=== PATIENT | male | born 1965 | race African-American/Black ===

== ENCOUNTER 2022-10-24 15:30 | Observation (INO) ==
--- NOTE | 2022-10-24 15:51 | EKG ---
Test Reason : OVERDOSE Blood Pressure : */* mmHG Vent. Rate : 71 BPM Atrial Rate : 71 BPM P-R Int : 158 ms QRS Dur : 90 ms QT Int : 438 ms P-R-T Axes : 48 7 -10 degrees QTc Int : 475 ms Sinus rhythm with occasional premature ventricular complexes Possible Left atrial enlargement Left ventricular hypertrophy ( R in aVL , Sokolow-Ariza , [place] product , Romhilt-Naranjo ) T wave abnormality, consider inferior ischemia Abnormal ECG When compared with ECG of 14-OCT-2022 12:30, T wave inversion more evident in Inferior leads Confirmed by Sean Lara ([id number]) on 10/25/2022 7:29:08 AM Referred By: Confirmed By: Sean Lara
--- NOTE | 2022-10-24 15:55 | DR.DING ---
HPI Time Seen Time Seen by Provider: 10/24/22 15:53 PMH PMH Past Medical History: Anxiety, CVA, Hypertension and Seizures Past Surgical History: Yes Surgical History: Ortho Surgery Family History Family Medical History: Hypertension Social History Do you use any recreational Drugs:: No PE Vital signs Vitals: Vital Signs Pulse Rate 71 Pulse Rate 72 Pulse Rate 75 Pulse Rate 76 Pulse Rate 95 Pulse Rate 94 Pulse Rate 98 Pulse Rate 69 Respiratory Rate 14 Respiratory Rate 25 Respiratory Rate 27 Respiratory Rate 32 Respiratory Rate 17 Blood Pressure 173/94 Blood Pressure 168/81 Blood Pressure 184/84 Blood Pressure 142/83 O2 Sat by Pulse Oximetry 100 O2 Sat by Pulse Oximetry 100 O2 Sat by Pulse Oximetry 100 O2 Sat by Pulse Oximetry 100 O2 Sat by Pulse Oximetry 100 O2 Sat by Pulse Oximetry 100 O2 Sat by Pulse Oximetry 100 O2 Sat by Pulse Oximetry 100 ROR Labs Reviewed 10/24/22 16:00 10/24/22 16:00 Laboratory: WBC 7.8 X10^3/uL (3.6-10.0) 10/24/22 16:00 RBC 3.81 X10^6/uL (4.7-6.0) L 10/24/22 16:00 Hgb 12.8 g/dL (13.5-18.0) L 10/24/22 16:00 Hct 39.1 % (42.0-54.0) L 10/24/22 16:00 MCV 102.7 fL (80.0-100.0) H 10/24/22 16:00 MCH 33.7 pg (27.0-34.0) 10/24/22 16:00 MCHC 32.8 g/dL (33.0-35.0) L 10/24/22 16:00 RDW 12.3 % (11.6-16.5) 10/24/22 16:00 Plt Count 156 X10^3/uL (150.0-450.0) 10/24/22 16:00 MPV 9.2 fL (7.4-11.0) 10/24/22 16:00 Neut % (Auto) 73.8 % (42.0-75.0) 10/24/22 16:00 Lymph % (Auto) 15.7 % (21.0-51.0) L 10/24/22 16:00 [place] % (Auto) 8.8 % (0.0-13.0) 10/24/22 16:00 Eos % (Auto) 1.1 % (0.9-2.9) 10/24/22 16:00 Baso % (Auto) 0.6 % (0.2-1.0) 10/24/22 16:00 Neut # (Auto) 5.7 x10^3/uL (2.2-4.8) H 10/24/22 16:00 Lymph # (Auto) 1.2 X10^3/uL (1.3-2.9) L 10/24/22 16:00 [place] # (Auto) 0.7 x10^3/uL (0.3-0.8) 10/24/22 16:00 Eos # (Auto) 0.1 x10^3/uL (0.0-0.2) 10/24/22 16:00 Baso # (Auto) 0.0 X10^3/uL (0.0-0.1) 10/24/22 16:00 Absolute Nucleated RBC 0.0 /100WBC 10/24/22 16:00 Sodium 147 mmol/L (136-145) H 10/24/22 16:00 Corrected Sodium TNP 10/24/22 16:00 Potassium 4.5 mmol/L (3.5-5.1) 10/24/22 16:00 Chloride 111 mmol/L (98-107) H 10/24/22 16:00 Carbon Dioxide 29.6 mmol/L (21-32) 10/24/22 16:00 BUN 34 mg/dL (7-18) H 10/24/22 16:00 Creatinine 1.53 mg/dL (0.70-1.30) H 10/24/22 16:00 Est GFR (MDRD) Af Amer 60 (>60) 10/24/22 16:00 Est GFR (MDRD) Non-Af 50 (>60) L 10/24/22 16:00 Glucose 105 mg/dL (65-99) H 10/24/22 16:00 Calcium 8.2 mg/dL (8.5-10.1) L 10/24/22 16:00 Corrected Calcium TNP 10/24/22 16:00 Total Bilirubin 0.90 mg/dL (0.2-1.0) 10/24/22 16:00 AST 31 Units/L (15-37) 10/24/22 16:00 ALT 30 Units/L (12-78) 10/24/22 16:00 Alkaline Phosphatase 69 Units/L (46-116) 10/24/22 16:00 Total Protein 7.0 g/dL (6.4-8.2) 10/24/22 16:00 Albumin 3.5 g/dL (3.4-5.0) 10/24/22 16:00 Globulin 3.5 g/dL (2.5-4.5) 10/24/22 16:00 Albumin/Globulin Ratio 1.0 Ratio (1.1-2.1) L 10/24/22 16:00 Salicylates < 2.8 mg/dL (2.8-20) L 10/24/22 16:00 Acetaminophen 0.0 ug/mL (10-30) L 10/24/22 16:00 Ethyl Alcohol mg/dL < 3 mg/dL (0-19.9) 10/24/22 16:00 Opioid Opioid Risk Tool Age ([place] box if 16-45): No History of Preadolescent Sexual Abuse: No Total: 0 Total Score Risk Category: Low Risk Copyright: [place] BASS predicting aberrant behaviors Discharge Plan Discharge Plan Patient Disposition: 01 HOME, SELF-CARE Condition: Stable Prescriptions: No Action amlodipine 10 mg tablet 10 mg PO QHS clonazepam 1 mg tablet 1 mg PO QHS MDD 1 tablet 30 Days Qty: 30 0RF Rx Instructions: administer 30 minutes before bedtime tamsulosin 0.4 mg capsule 0.4 mg PO QHS Qty: 30 3RF carvedilol 25 mg Tablet 25 mg PO QHS Rx Instructions: must administer with a meal/food clonidine HCl 0.2 mg Tablet 0.2 mg PO BID PRN lisinopril 40 mg Tablet 40 mg PO QAM lisinopril 40 mg tablet 40 mg PO QDAY Qty: 30 0RF amiloride 5 mg tablet 10 mg PO QHS Qty: 30 0RF carvedilol 25 mg tablet 25 mg PO QHS Qty: 30 0RF Rx Instructions: must administer with a meal/food Health Concerns: Post Hospitalization: new medications and changes needed to prevent readmission or further decline. Pt educated and given instructions on all concerns. Plan of Treatment: Continue with present treatment and follow up plan. Pt is to keep follow up appointment as instructed and take medications as ordered. Orders to Discharge Patient Discharge Orders: Transfer (Routine); Ordered 10/24/22 Ordered By: LAURO DORANTES Follow ups/Referrals Follow ups/Referrals: [facility],None [Primary Care Provider] - 3 days Instructions Stand Alone Forms: Post Hospital Follow Up Care
[2022-10-24 16:22] LABS: BASOPHILS % (AUTO) 0.6 % (0.2-1.0); EOSINOPHILS # (AUTO) 0.1 x10^3/uL (0.0-0.2); EOSINOPHILS % (AUTO) 1.1 % (0.9-2.9); HEMATOCRIT 39.1 % (42.0-54.0); HEMOGLOBIN 12.8 g/dL (13.5-18.0); LYMPHOCYTES # (AUTO) 1.2 X10^3/uL (1.3-2.9); LYMPHOCYTES % (AUTO) 15.7 % (21.0-51.0); MEAN CORPUSCULAR HEMOGLOBIN 33.7 pg (27.0-34.0); MEAN CORPUSCULAR HGB CONC 32.8 g/dL (33.0-35.0); MEAN CORPUSCULAR VOLUME 102.7 fL (80.0-100.0); MEAN PLATELET VOLUME 9.2 fL (7.4-11.0); MONOCYTES # (AUTO) 0.7 x10^3/uL (0.3-0.8); MONOCYTES % (AUTO) 8.8 % (0.0-13.0); NEUTROPHILS # (AUTO) 5.7 x10^3/uL (2.2-4.8); NEUTROPHILS % (AUTO) 73.8 % (42.0-75.0); PLATELET COUNT 156 X10^3/uL (150.0-450.0); RED BLOOD COUNT 3.81 X10^6/uL (4.7-6.0); RED CELL DISTRIBUTION WIDTH 12.3 % (11.6-16.5); WHITE BLOOD COUNT 7.8 X10^3/uL (3.6-10.0)
[2022-10-24 16:26] LABS: ALANINE AMINOTRANSFERASE 30 Units/L (12-78); ALBUMIN 3.5 g/dL (3.4-5.0); ALKALINE PHOSPHATASE 69 Units/L (46-116); ASPARTATE AMINO TRANSFERASE 31 Units/L (15-37); BLOOD UREA NITROGEN 34 mg/dL (7-18); CALCIUM 8.2 mg/dL (8.5-10.1); CARBON DIOXIDE 29.6 mmol/L (21-32); CHLORIDE 111 mmol/L (98-107); CREATININE 1.53 mg/dL (0.70-1.30); GLUCOSE 105 mg/dL (65-99); POTASSIUM 4.5 mmol/L (3.5-5.1); SODIUM 147 mmol/L (136-145); eGFR NON BLACK RACES 50 (>60)
[2022-10-24 16:29] LABS: BLOOD ALCOHOL < 3 mg/dL (0-19.9)
[2022-10-24 16:37] LABS: SALICYLATE < 2.8 mg/dL (2.8-20)
[2022-10-24] MEDS ORDERED: NS 1,000 ML IV 1,000 ML ONE (16:40)
[2022-10-24] MEDS: NS 1,000 ML IV 1,000 ML IV SCH (16:44)
[2022-10-24] MEDS ORDERED: GEODON INJ IM ONE (20:02)
[2022-10-24] MEDS: GEODON INJ IM ONE (20:16)
[2022-10-24 22:39] VITALS: BMI 24.7
[2022-10-24] MEDS ORDERED: APRESOLINE INJ 20 MG VIAL IVP ONE (22:42)
[2022-10-24 23:10] LABS: BILIRUBIN,URINE NEGATIVE (NEGATIVE); BLOOD/HEMOGLOBIN,URINE NEGATIVE (NEGATIVE); GLUCOSE, URINE NEGATIVE (NEGATIVE); KETONES,URINE NEGATIVE (NEGATIVE); LEUKOCYTE ESTERASE ,URINE NEGATIVE (NEGATIVE); NITRITES,URINE NEGATIVE (NEGATIVE); PROTEIN,URINE NEGATIVE (NEGATIVE); UROBILINOGEN,URINE NORMAL (NORMAL)
[2022-10-24 23:27] LABS: APPEARANCE,URINE CLEAR (CLEAR); COLOR,URINE PALE YELLOW (YELLOW)
--- NOTE | 2022-10-24 23:30 | EKG ---
Test Reason : Hpertension Protocol Blood Pressure : */* mmHG Vent. Rate : 78 BPM Atrial Rate : 78 BPM P-R Int : 144 ms QRS Dur : 86 ms QT Int : 410 ms P-R-T Axes : 55 21 -4 degrees QTc Int : 467 ms Sinus rhythm with frequent premature ventricular complexes Possible Left atrial enlargement Left ventricular hypertrophy ( Sokolow-Ariza , [place] product , Romhilt-Naranjo ) Abnormal ECG When compared with ECG of 24-OCT-2022 15:49, (Unconfirmed) Nonspecific T wave abnormality no longer evident in Lateral leads Confirmed by Sean Lara ([id number]) on 10/25/2022 7:28:42 AM Referred By: Confirmed By: Sean Lara
[2022-10-25] MEDS: NS 1,000 ML IV 1,000 ML IV SCH (02:00)
[2022-10-25] MEDS ORDERED: GEODON INJ IM ONE ×2 (03:10→10:48)
[2022-10-25] MEDS: GEODON INJ IM ONE (03:56)
[2022-10-25 05:33] LABS: BASOPHILS # (AUTO) 0.1 X10^3/uL (0.0-0.1); BASOPHILS % (AUTO) 0.7 % (0.2-1.0); EOSINOPHILS # (AUTO) 0.1 x10^3/uL (0.0-0.2); EOSINOPHILS % (AUTO) 1.9 % (0.9-2.9); HEMATOCRIT 42.6 % (42.0-54.0); HEMOGLOBIN 14.3 g/dL (13.5-18.0); LYMPHOCYTES # (AUTO) 2.1 X10^3/uL (1.3-2.9); LYMPHOCYTES % (AUTO) 27.9 % (21.0-51.0); MEAN CORPUSCULAR HEMOGLOBIN 33.9 pg (27.0-34.0); MEAN CORPUSCULAR HGB CONC 33.6 g/dL (33.0-35.0); MEAN CORPUSCULAR VOLUME 100.9 fL (80.0-100.0); MEAN PLATELET VOLUME 8.8 fL (7.4-11.0); MONOCYTES # (AUTO) 0.6 x10^3/uL (0.3-0.8); MONOCYTES % (AUTO) 8.2 % (0.0-13.0); NEUTROPHILS # (AUTO) 4.7 x10^3/uL (2.2-4.8); NEUTROPHILS % (AUTO) 61.3 % (42.0-75.0); PLATELET COUNT 168 X10^3/uL (150.0-450.0); RED BLOOD COUNT 4.23 X10^6/uL (4.7-6.0); RED CELL DISTRIBUTION WIDTH 12.7 % (11.6-16.5); WHITE BLOOD COUNT 7.6 X10^3/uL (3.6-10.0)
[2022-10-25 05:44] LABS: ALANINE AMINOTRANSFERASE 30 Units/L (12-78); ALBUMIN 3.5 g/dL (3.4-5.0); ALKALINE PHOSPHATASE 75 Units/L (46-116); ASPARTATE AMINO TRANSFERASE 31 Units/L (15-37); BLOOD UREA NITROGEN 19 mg/dL (7-18); CALCIUM 8.2 mg/dL (8.5-10.1); CARBON DIOXIDE 24.6 mmol/L (21-32); CHLORIDE 111 mmol/L (98-107); CREATININE 0.91 mg/dL (0.70-1.30); GLUCOSE 83 mg/dL (65-99); MAGNESIUM 1.9 mg/dL (2.0-2.9); POTASSIUM 3.5 mmol/L (3.5-5.1); SODIUM 146 mmol/L (136-145); TOTAL PROTEIN 7.2 g/dL (6.4-8.2); eGFR NON BLACK RACES > 60 (>60)
[2022-10-25] MEDS ORDERED: CONSULT PHARMACY - POTASSIUM & MAGNESIUM XX SCH (07:00)
[2022-10-25] MEDS: NS + KCL 20 MEQ/L 1,000 ML with MAGNESIUM SULFATE 50% INJ VIAL 1 G IV SCH ×4 (08:00→16:33)
[2022-10-25] MEDS ORDERED: MAG-OX TAB PO SCH (09:00)
[2022-10-25] MEDS ORDERED: K-DUR TAB 20 MEQ PO SCH (09:00)
[2022-10-25] MEDS ORDERED: GEODON INJ IM PRN (10:47)
[2022-10-25] MEDS ORDERED: APRESOLINE INJ 20 MG VIAL IVP ONE ×2 (11:03→17:10)
[2022-10-25] MEDS: ZESTRIL TAB 40 MG PO SCH (11:23)
[2022-10-25] MEDS: NORMODYNE INJ 20 MG VIAL IV PRN (14:42)
[2022-10-25] MEDS: ATIVAN INJ 2 MG VIAL IVP PRN ×2 (14:42→22:14)
[2022-10-25] MEDS: COREG TAB 25 MG PO SCH (20:06)
[2022-10-25] MEDS: KLONOPIN TAB 1 MG PO SCH (20:06)
[2022-10-25] MEDS: FLOMAX PO SCH (20:06)
--- NOTE | 2022-10-25 20:46 | DR.H&P ---
H&P History & Physical for Day of: H&P Date: 10/25/22 Chief Complaint Chief Complaint: Altered mental status Overdose Allergies Allergies Allergy/AdvReac Type Severity Reaction Status Date / Time tramadol Allergy Verified 10/10/22 19:58 History of Present Illness History of Present Illness: Pt is a 57 year old male that is presenting after swallowing multiple klonopin pills per discussion with ED physician. Pt states that he was trying to harm himself. Patient has a history of recurrent ER visits for similar complaints. This time he was being arrested by law enforcement and took the pills in front of them. He was then brought to the ED for further assessment. Poison control was contacted and advised to monitor the patient until he is alert and oriented. Patient was admitted in the ICU for closer monitoring. Labs/imaging: Wbc 7.6, Hgb 14.3, Plt 168, Na 146, K 3.5, Creatinine 0.91, Glucose 83, UA negative, Toxicology screen negative. Plan: Admit to ICU for closer monitoring. When patient reached the ICU, he became very aggressive and was pulling all the lines. Security was called and patient had to be placed on restraints. He was given Geodon 10 mg IM. He was monitored throughout the night and did require an additional dose of Geodon. He refused to wear telemetry. This morning, his mental status improved to baseline, he is alert and oriented. He does have mental health issues including agitation and very combative. He stated that he wants to harm himself. Patient does have a 1013 signed. He has been very uncooperative with nursing staff. He had to be placed in 4 point restraints due to his combative behaviour. Patient is medically cleared to be transferred to psych facility. CM will notify crisis line to evaluate the patient for transfer. . Continue closely monitor and follow-up with patient. Past Medical History Past Medical History: Anxiety, CVA, Hypertension and Seizures Past Surgical History Surgical History: Ortho Surgery Family History Family Medical History: Hypertension Social History Does patient currently use any type of tobacco product: Yes Have you used tobacco products in the last 12 months: Yes Type of Tobacco Use: Cigarettes How many years tobacco product used: 1 Does any household member use tobacco: Yes Alcohol Use: Other Drug Use: Prescription Drugs Medications Home Medications: Home Medications Medication Instructions Recorded Confirmed Type lisinopril 40 mg tablet 40 mg PO QAM 10/10/22 10/25/22 History Labs 10/25/22 05:14 10/25/22 05:14 Labs: Laboratory WBC 7.6 X10^3/uL (3.6-10.0) 10/25/22 05:14 RBC 4.23 X10^6/uL (4.7-6.0) L 10/25/22 05:14 Hgb 14.3 g/dL (13.5-18.0) 10/25/22 05:14 Hct 42.6 % (42.0-54.0) 10/25/22 05:14 MCV 100.9 fL (80.0-100.0) H 10/25/22 05:14 MCH 33.9 pg (27.0-34.0) 10/25/22 05:14 MCHC 33.6 g/dL (33.0-35.0) 10/25/22 05:14 RDW 12.7 % (11.6-16.5) 10/25/22 05:14 Plt Count 168 X10^3/uL (150.0-450.0) 10/25/22 05:14 MPV 8.8 fL (7.4-11.0) 10/25/22 05:14 Neut % (Auto) 61.3 % (42.0-75.0) 10/25/22 05:14 Lymph % (Auto) 27.9 % (21.0-51.0) 10/25/22 05:14 [place] % (Auto) 8.2 % (0.0-13.0) 10/25/22 05:14 Eos % (Auto) 1.9 % (0.9-2.9) 10/25/22 05:14 Baso % (Auto) 0.7 % (0.2-1.0) 10/25/22 05:14 Neut # (Auto) 4.7 x10^3/uL (2.2-4.8) 10/25/22 05:14 Lymph # (Auto) 2.1 X10^3/uL (1.3-2.9) 10/25/22 05:14 [place] # (Auto) 0.6 x10^3/uL (0.3-0.8) 10/25/22 05:14 Eos # (Auto) 0.1 x10^3/uL (0.0-0.2) 10/25/22 05:14 Baso # (Auto) 0.1 X10^3/uL (0.0-0.1) 10/25/22 05:14 Absolute Nucleated RBC 0.1 /100WBC 10/25/22 05:14 Sodium 146 mmol/L (136-145) H 10/25/22 05:14 Corrected Sodium TNP 10/25/22 05:14 Potassium 3.5 mmol/L (3.5-5.1) 10/25/22 05:14 Chloride 111 mmol/L (98-107) H 10/25/22 05:14 Carbon Dioxide 24.6 mmol/L (21-32) 10/25/22 05:14 BUN 19 mg/dL (7-18) H 10/25/22 05:14 Creatinine 0.91 mg/dL (0.70-1.30) 10/25/22 05:14 Est GFR (MDRD) Af Amer > 60 (>60) 10/25/22 05:14 Est GFR (MDRD) Non-Af > 60 (>60) 10/25/22 05:14 Glucose 83 mg/dL (65-99) 10/25/22 05:14 Calcium 8.2 mg/dL (8.5-10.1) L 10/25/22 05:14 Corrected Calcium TNP 10/25/22 05:14 Magnesium 1.9 mg/dL (2.0-2.9) L 10/25/22 05:14 Total Bilirubin 1.10 mg/dL (0.2-1.0) H 10/25/22 05:14 AST 31 Units/L (15-37) 10/25/22 05:14 ALT 30 Units/L (12-78) 10/25/22 05:14 Alkaline Phosphatase 75 Units/L (46-116) 10/25/22 05:14 Total Protein 7.2 g/dL (6.4-8.2) 10/25/22 05:14 Albumin 3.5 g/dL (3.4-5.0) 10/25/22 05:14 Globulin 3.7 g/dL (2.5-4.5) 10/25/22 05:14 Albumin/Globulin Ratio 0.9 Ratio (1.1-2.1) L 10/25/22 05:14 Specimen Type Clean catch urine 10/24/22 22:56 Urine Color Pale yellow (YELLOW) 10/24/22 22:56 Urine Appearance Clear (CLEAR) 10/24/22 22:56 Urine pH 6.0 (5.0 - 8.0) 10/24/22 22:56 Ur Specific [place] 1.015 (1.000-1.030) 10/24/22 22:56 Urine Protein Negative (NEGATIVE) 10/24/22 22:56 Urine Glucose (UA) Negative (NEGATIVE) 10/24/22 22:56 Urine Ketones Negative (NEGATIVE) 10/24/22 22:56 Urine Blood Negative (NEGATIVE) 10/24/22 22:56 Urine Nitrite Negative (NEGATIVE) 10/24/22 22:56 Urine Bilirubin Negative (NEGATIVE) 10/24/22 22:56 Urine Urobilinogen Normal (NORMAL) 10/24/22 22:56 Ur Leukocyte Esterase Negative (NEGATIVE) 10/24/22 22:56 Salicylates < 2.8 mg/dL (2.8-20) L 10/24/22 22:10 Urine Opiates Screen Negative (NEG=<300) 10/24/22 23:00 Urine Methadone Screen Negative (NEG=<300) 10/24/22 23:00 Acetaminophen 0.0 ug/mL (10-30) L 10/24/22 22:10 Ur Barbiturates Screen Negative (NEG=<200) 10/24/22 23:00 Ur Phencyclidine Scrn Negative (NEG=<25) 10/24/22 23:00 Ur Amphetamines Screen Negative (NEG=<1000) 10/24/22 23:00 U Benzodiazepines Scrn Negative (NEG=<200) 10/24/22 23:00 Urine Cocaine Screen Negative (NEG=<300) 10/24/22 23:00 U Marijuana (THC) Screen Negative (NEG=<50) 10/24/22 23:00 Ethyl Alcohol mg/dL < 3 mg/dL (0-19.9) 10/24/22 16:00 Review of Systems Constitutional: No Symptoms Reported Eyes: No Symptoms Reported ENT: No Symptoms Reported Respiratory: No Symptoms Reported Cardiovascular: No Symptoms Reported Gastrointestinal: No Symptoms Reported Genitourinary: No Symptoms Reported Musculoskeletal: No Symptoms Reported Skin: No Symptoms Reported Neurological: No Symptoms Reported Physical Exam Vital Signs: Vital Signs Temperature 98.0 F Temperature 97.6 F Temperature 97.7 F Pulse Rate 77 Pulse Rate 76 Pulse Rate 67 Pulse Rate 66 Pulse Rate 69 Pulse Rate 67 Pulse Rate 59 Pulse Rate 68 Respiratory Rate 30 Respiratory Rate 24 Respiratory Rate 24 Respiratory Rate 15 Respiratory Rate 14 Respiratory Rate 15 Respiratory Rate 16 Respiratory Rate 18 Blood Pressure 196/91 Blood Pressure 166/89 Blood Pressure 155/89 Blood Pressure 140/88 Blood Pressure 99/64 Blood Pressure 138/67 Blood Pressure 177/99 O2 Sat by Pulse Oximetry 100 O2 Sat by Pulse Oximetry 100 O2 Sat by Pulse Oximetry 100 O2 Sat by Pulse Oximetry 100 O2 Sat by Pulse Oximetry 100 O2 Sat by Pulse Oximetry 100 O2 Sat by Pulse Oximetry 100 O2 Sat by Pulse Oximetry 100 Oriented: Normal Eyes: Normal Ear: Normal Nose: Normal Throat: Normal Respiratory: Clear Throughout Cardiovascular: Normal : Normal Auscultation: Bowel Sounds: Normal Palpation: Normal Tenderness: Normal Skin: Normal Musculoskeletal: Normal Psychiatric: Agitation Mood Description: Hostile Affect: Depressed Speech Pattern: Clear and Appropriate Assessment/Plan (1) Depression: Status: Acute (2) Suicidal ideation: Status: Acute (3) Polysubstance abuse: Status: Acute Review H&P Reviewed: Yes Patient was examined?: Yes
[2022-10-26] MEDS: NS + KCL 20 MEQ/L 1,000 ML with MAGNESIUM SULFATE 50% INJ VIAL 1 G IV SCH ×6 (01:40→16:02)
[2022-10-26] MEDS ORDERED: MORPHINE SULFATE INJ 2 MG INJ IVP ONE (02:30)
[2022-10-26] MEDS ORDERED: MORPHINE SULFATE INJ 2 MG INJ ONE (02:35)
[2022-10-26 05:21] LABS: ALANINE AMINOTRANSFERASE 23 Units/L (12-78); ALBUMIN 3.1 g/dL (3.4-5.0); ALKALINE PHOSPHATASE 70 Units/L (46-116); ASPARTATE AMINO TRANSFERASE 27 Units/L (15-37); BLOOD UREA NITROGEN 12 mg/dL (7-18); CALCIUM 7.6 mg/dL (8.5-10.1); CARBON DIOXIDE 26.9 mmol/L (21-32); CHLORIDE 110 mmol/L (98-107); COR CA(FOR HYPOALB) 8.3 mg/dL (8.5-10.1); COR NA(FOR HYPERGLY) 145 mmol/L (136-145); CREATININE 1.03 mg/dL (0.70-1.30); GLUCOSE 154 mg/dL (65-99); MAGNESIUM 2.3 mg/dL (2.0-2.9); SODIUM 144 mmol/L (136-145); TOTAL PROTEIN 6.5 g/dL (6.4-8.2); eGFR NON BLACK RACES > 60 (>60)
[2022-10-26 05:26] LABS: BASOPHILS # (AUTO) 0.1 X10^3/uL (0.0-0.1); BASOPHILS % (AUTO) 0.6 % (0.2-1.0); EOSINOPHILS # (AUTO) 0.1 x10^3/uL (0.0-0.2); EOSINOPHILS % (AUTO) 1.4 % (0.9-2.9); HEMATOCRIT 39.6 % (42.0-54.0); HEMOGLOBIN 13.3 g/dL (13.5-18.0); LYMPHOCYTES # (AUTO) 1.9 X10^3/uL (1.3-2.9); LYMPHOCYTES % (AUTO) 22.2 % (21.0-51.0); MEAN CORPUSCULAR HEMOGLOBIN 33.9 pg (27.0-34.0); MEAN CORPUSCULAR HGB CONC 33.6 g/dL (33.0-35.0); MEAN PLATELET VOLUME 10.2 fL (7.4-11.0); MONOCYTES # (AUTO) 0.5 x10^3/uL (0.3-0.8); MONOCYTES % (AUTO) 6.4 % (0.0-13.0); NEUTROPHILS # (AUTO) 5.8 x10^3/uL (2.2-4.8); NEUTROPHILS % (AUTO) 69.4 % (42.0-75.0); PLATELET COUNT 138 X10^3/uL (150.0-450.0); RED BLOOD COUNT 3.92 X10^6/uL (4.7-6.0); RED CELL DISTRIBUTION WIDTH 12.6 % (11.6-16.5)
[2022-10-26 05:34] LABS: PLATELET MORPHOLOGY COMMENT NORMAL (NORMAL); WHITE BLOOD COUNT 8.4 X10^3/uL (3.6-10.0)
[2022-10-26] MEDS: ZESTRIL TAB 40 MG PO SCH (09:05)
--- NOTE | 2022-10-26 10:56 | PCM.PROG ---
Progress Note Progress Note for Day of Date of Exam: 10/26/22 Subjective Subjective: The patient is alert and awake this morning. He is currently eating breakfast and reports no new problems since yesterday. He is calm and not angry today like he had been over the last few days. We are still currently trying to find a place to take him because of his delivery drug overdose. However, this morning, he told me that he deliberately took the medication to get people's attention; however, he has a history of deliberate drug overdoses in the past, and he was telling the covering physician and nurses that he wanted to and kill himself over the last few days. Past Medical Family Social History Allergies: Allergies tramadol Allergy (Verified 10/10/22 19:58) Review of Systems ROS: No change since H&P Vital Signs and I&O's Vital Signs: Vital Signs Temperature 97.5 F Temperature 98.1 F Pulse Rate 68 Pulse Rate 68 Pulse Rate 69 Pulse Rate 75 Pulse Rate 70 Pulse Rate 71 Pulse Rate 69 Pulse Rate 68 Pulse Rate 69 Pulse Rate 68 Pulse Rate 63 Pulse Rate 70 Pulse Rate 82 Pulse Rate 78 Respiratory Rate 25 Respiratory Rate 22 Respiratory Rate 19 Respiratory Rate 26 Respiratory Rate 18 Respiratory Rate 19 Respiratory Rate 18 Respiratory Rate 13 Respiratory Rate 19 Respiratory Rate 18 Respiratory Rate 34 Respiratory Rate 20 Respiratory Rate 26 Blood Pressure 141/77 Blood Pressure 141/77 Blood Pressure 91/71 Blood Pressure 91/71 Blood Pressure 91/71 Blood Pressure 125/72 Blood Pressure 124/71 Blood Pressure 144/80 Blood Pressure 128/70 Blood Pressure 112/55 O2 Sat by Pulse Oximetry 100 O2 Sat by Pulse Oximetry 99 O2 Sat by Pulse Oximetry 98 O2 Sat by Pulse Oximetry 98 O2 Sat by Pulse Oximetry 97 O2 Sat by Pulse Oximetry 98 O2 Sat by Pulse Oximetry 97 O2 Sat by Pulse Oximetry 97 O2 Sat by Pulse Oximetry 98 O2 Sat by Pulse Oximetry 97 O2 Sat by Pulse Oximetry 97 O2 Sat by Pulse Oximetry 99 O2 Sat by Pulse Oximetry 99 O2 Sat by Pulse Oximetry 99 Intake and Output: Intake & Output 10/23/22 10/24/22 10/25/22 10/26/22 11:59 11:59 11:59 11:59 Intake Total 1120 / 1120 3515 / 3515 Output Total 600 / 600 2250 / 2250 Balance 520 / 520 1265 / 1265 Physical Exam Oriented: Normal Eyes: Normal Ear: Normal Nose: Normal Throat: Normal Respiratory: Normal Cardiovascular: Normal : Normal Auscultation: Bowel Sounds: Normal Tenderness: Normal Skin: Normal Musculoskeletal: Normal Psychiatric: Agitation Mood Description: Hostile Affect: Depressed Speech Pattern: Appropriate Laboratory and Diagnostics 10/26/22 04:00 10/26/22 04:00 Labs: Laboratory WBC 8.4 X10^3/uL (3.6-10.0) 10/26/22 04:00 RBC 3.92 X10^6/uL (4.7-6.0) L 10/26/22 04:00 Hgb 13.3 g/dL (13.5-18.0) L 10/26/22 04:00 Hct 39.6 % (42.0-54.0) L 10/26/22 04:00 MCV 101.0 fL (80.0-100.0) H 10/26/22 04:00 MCH 33.9 pg (27.0-34.0) 10/26/22 04:00 MCHC 33.6 g/dL (33.0-35.0) 10/26/22 04:00 RDW 12.6 % (11.6-16.5) 10/26/22 04:00 Plt Count 138 X10^3/uL (150.0-450.0) L 10/26/22 04:00 Plt Count Comment Decreased (ADEQUATE) 10/26/22 04:00 MPV 10.2 fL (7.4-11.0) 10/26/22 04:00 Neut % (Auto) 69.4 % (42.0-75.0) 10/26/22 04:00 Lymph % (Auto) 22.2 % (21.0-51.0) 10/26/22 04:00 [place] % (Auto) 6.4 % (0.0-13.0) 10/26/22 04:00 Eos % (Auto) 1.4 % (0.9-2.9) 10/26/22 04:00 Baso % (Auto) 0.6 % (0.2-1.0) 10/26/22 04:00 Neut # (Auto) 5.8 x10^3/uL (2.2-4.8) H 10/26/22 04:00 Lymph # (Auto) 1.9 X10^3/uL (1.3-2.9) 10/26/22 04:00 [place] # (Auto) 0.5 x10^3/uL (0.3-0.8) 10/26/22 04:00 Eos # (Auto) 0.1 x10^3/uL (0.0-0.2) 10/26/22 04:00 Baso # (Auto) 0.1 X10^3/uL (0.0-0.1) 10/26/22 04:00 Absolute Nucleated RBC 0.3 /100WBC 10/26/22 04:00 Plt Clumps, EDTA Rare 10/26/22 04:00 Plt Morphology Comment Normal (NORMAL) 10/26/22 04:00 RBC Morphology Normal (NORMAL) 10/26/22 04:00 Sodium 144 mmol/L (136-145) 10/26/22 04:00 Corrected Sodium 145 mmol/L (136-145) 10/26/22 04:00 Potassium 4.0 mmol/L (3.5-5.1) 10/26/22 04:00 Chloride 110 mmol/L (98-107) H 10/26/22 04:00 Carbon Dioxide 26.9 mmol/L (21-32) 10/26/22 04:00 BUN 12 mg/dL (7-18) 10/26/22 04:00 Creatinine 1.03 mg/dL (0.70-1.30) 10/26/22 04:00 Est GFR (MDRD) Af Amer > 60 (>60) 10/26/22 04:00 Est GFR (MDRD) Non-Af > 60 (>60) 10/26/22 04:00 Glucose 154 mg/dL (65-99) H 10/26/22 04:00 Calcium 7.6 mg/dL (8.5-10.1) L 10/26/22 04:00 Corrected Calcium 8.3 mg/dL (8.5-10.1) L 10/26/22 04:00 Magnesium 2.3 mg/dL (2.0-2.9) 10/26/22 04:00 Total Bilirubin 0.60 mg/dL (0.2-1.0) 10/26/22 04:00 AST 27 Units/L (15-37) 10/26/22 04:00 ALT 23 Units/L (12-78) 10/26/22 04:00 Alkaline Phosphatase 70 Units/L (46-116) 10/26/22 04:00 Total Protein 6.5 g/dL (6.4-8.2) 10/26/22 04:00 Albumin 3.1 g/dL (3.4-5.0) L 10/26/22 04:00 Globulin 3.4 g/dL (2.5-4.5) 10/26/22 04:00 Albumin/Globulin Ratio 0.9 Ratio (1.1-2.1) L 10/26/22 04:00 Specimen Type Clean catch urine 10/24/22 22:56 Urine Color Pale yellow (YELLOW) 10/24/22 22:56 Urine Appearance Clear (CLEAR) 10/24/22 22:56 Urine pH 6.0 (5.0 - 8.0) 10/24/22 22:56 Ur Specific [place] 1.015 (1.000-1.030) 10/24/22 22:56 Urine Protein Negative (NEGATIVE) 10/24/22 22:56 Urine Glucose (UA) Negative (NEGATIVE) 10/24/22 22:56 Urine Ketones Negative (NEGATIVE) 10/24/22 22:56 Urine Blood Negative (NEGATIVE) 10/24/22 22:56 Urine Nitrite Negative (NEGATIVE) 10/24/22 22:56 Urine Bilirubin Negative (NEGATIVE) 10/24/22 22:56 Urine Urobilinogen Normal (NORMAL) 10/24/22 22:56 Ur Leukocyte Esterase Negative (NEGATIVE) 10/24/22 22:56 Salicylates < 2.8 mg/dL (2.8-20) L 10/24/22 22:10 Urine Opiates Screen Negative (NEG=<300) 10/24/22 23:00 Urine Methadone Screen Negative (NEG=<300) 10/24/22 23:00 Acetaminophen 0.0 ug/mL (10-30) L 10/24/22 22:10 Ur Barbiturates Screen Negative (NEG=<200) 10/24/22 23:00 Ur Phencyclidine Scrn Negative (NEG=<25) 10/24/22 23:00 Ur Amphetamines Screen Negative (NEG=<1000) 10/24/22 23:00 U Benzodiazepines Scrn Negative (NEG=<200) 10/24/22 23:00 Urine Cocaine Screen Negative (NEG=<300) 10/24/22 23:00 U Marijuana (THC) Screen Negative (NEG=<50) 10/24/22 23:00 Ethyl Alcohol mg/dL < 3 mg/dL (0-19.9) 10/24/22 16:00 Plan (1) Depression: Status: Acute Plan: Defer to mental health for treatment. (2) Suicidal ideation: Status: Acute Plan: Referred to mental health for further evaluation and treatment. (3) Polysubstance abuse: Status: Acute Plan: Mental health referral for treatment.
[2022-10-26] MEDS: ATIVAN INJ 2 MG VIAL IVP PRN (13:15)
[2022-10-26] MEDS ORDERED: APRESOLINE INJ 20 MG VIAL IVP ONE (14:05)
[2022-10-26] MEDS: NORMODYNE INJ 20 MG VIAL IV PRN (15:05)
[2022-10-26] MEDS ORDERED: TYLENOL 325 MG TAB PO PRN (19:19)
[2022-10-26] MEDS: COREG TAB 25 MG PO SCH (20:13)
[2022-10-26] MEDS: FLOMAX PO SCH (20:13)
[2022-10-26] MEDS: KLONOPIN TAB 1 MG PO SCH (20:13)
[2022-10-27] MEDS: NS + KCL 20 MEQ/L 1,000 ML with MAGNESIUM SULFATE 50% INJ VIAL 1 G IV SCH ×2 (00:05)
[2022-10-27] MEDS: ATIVAN INJ 2 MG VIAL IVP PRN (01:10)
[2022-10-27 05:01] LABS: BASOPHILS % (AUTO) 0.6 % (0.2-1.0); EOSINOPHILS # (AUTO) 0.1 x10^3/uL (0.0-0.2); EOSINOPHILS % (AUTO) 1.7 % (0.9-2.9); LYMPHOCYTES # (AUTO) 2.2 X10^3/uL (1.3-2.9); LYMPHOCYTES % (AUTO) 28.2 % (21.0-51.0); MEAN CORPUSCULAR HEMOGLOBIN 34.6 pg (27.0-34.0); MEAN CORPUSCULAR HGB CONC 34.2 g/dL (33.0-35.0); MEAN PLATELET VOLUME 8.9 fL (7.4-11.0); MONOCYTES # (AUTO) 0.7 x10^3/uL (0.3-0.8); MONOCYTES % (AUTO) 9.6 % (0.0-13.0); NEUTROPHILS # (AUTO) 4.6 x10^3/uL (2.2-4.8); NEUTROPHILS % (AUTO) 59.9 % (42.0-75.0); PLATELET COUNT 142 X10^3/uL (150.0-450.0); RED BLOOD COUNT 3.46 X10^6/uL (4.7-6.0); RED CELL DISTRIBUTION WIDTH 12.3 % (11.6-16.5); WHITE BLOOD COUNT 7.7 X10^3/uL (3.6-10.0)
[2022-10-27 05:13] LABS: ALANINE AMINOTRANSFERASE 19 Units/L (12-78); ALBUMIN 2.6 g/dL (3.4-5.0); ALKALINE PHOSPHATASE 61 Units/L (46-116); ASPARTATE AMINO TRANSFERASE 14 Units/L (15-37); BLOOD UREA NITROGEN 10 mg/dL (7-18); CALCIUM 7.6 mg/dL (8.5-10.1); CARBON DIOXIDE 24.4 mmol/L (21-32); CHLORIDE 112 mmol/L (98-107); COR CA(FOR HYPOALB) 8.7 mg/dL (8.5-10.1); COR NA(FOR HYPERGLY) 144 mmol/L (136-145); CREATININE 0.84 mg/dL (0.70-1.30); GLUCOSE 113 mg/dL (65-99); POTASSIUM 4.5 mmol/L (3.5-5.1); SODIUM 144 mmol/L (136-145); TOTAL PROTEIN 5.5 g/dL (6.4-8.2); eGFR NON BLACK RACES > 60 (>60)
[2022-10-27] MEDS ORDERED: MILK OF MAGNESIA PO PRN (07:32)
[2022-10-27 08:22] VITALS: PULSE 75; RESP 20; TEMP 97.8; O2SAT 96
[2022-10-27] MEDS: ZESTRIL TAB 40 MG PO SCH (08:23)
--- NOTE | 2022-10-27 08:39 | PCM.PROG ---
Progress Note Progress Note for Day of Date of Exam: 10/27/22 Subjective Subjective: The patient is alert and awake this morning. He has not had any significant problems since yesterday morning. He has not had to be restrained in the last 24 hours. We did give him Geodon 20 mg x 1 yesterday for some mild agitation and that did alleviate his agitation. He has not had any since then. Currently waiting for possible placement at [facility] in [place], [place]. Continue current treatment. Past Medical Family Social History Allergies: Allergies tramadol Allergy (Verified 10/10/22 19:58) Review of Systems ROS: No change since H&P Vital Signs and I&O's Vital Signs: Vital Signs Temperature 97.8 F Temperature 98.4 F Pulse Rate 75 Pulse Rate 82 Pulse Rate 85 Respiratory Rate 20 Respiratory Rate 18 Respiratory Rate 20 Blood Pressure 189/114 Blood Pressure 169/94 Blood Pressure 174/90 Blood Pressure 174/90 Blood Pressure 174/90 Blood Pressure 174/102 Blood Pressure 174/102 O2 Sat by Pulse Oximetry 96 O2 Sat by Pulse Oximetry 99 O2 Sat by Pulse Oximetry 99 Intake and Output: Intake & Output 10/24/22 10/25/22 10/26/22 10/27/22 11:59 11:59 11:59 11:59 Intake Total 1120 / 1120 3515 / 3515 4949 / 4949 Output Total 600 / 600 2250 / 2250 2900 / 2900 Balance 520 / 520 1265 / 1265 2049 / 2049 Physical Exam Oriented: Normal Eyes: Normal Ear: Normal Nose: Normal Throat: Normal Respiratory: Normal Cardiovascular: Normal : Normal Auscultation: Bowel Sounds: Normal Tenderness: Normal Skin: Normal Musculoskeletal: Normal Psychiatric: Agitation Mood Description: Hostile Affect: Depressed Speech Pattern: Appropriate Laboratory and Diagnostics 10/27/22 04:20 10/27/22 04:20 Labs: Laboratory WBC 7.7 X10^3/uL (3.6-10.0) 10/27/22 04:20 RBC 3.46 X10^6/uL (4.7-6.0) L 10/27/22 04:20 Hgb 12.0 g/dL (13.5-18.0) L 10/27/22 04:20 Hct 35.0 % (42.0-54.0) L 10/27/22 04:20 MCV 101.0 fL (80.0-100.0) H 10/27/22 04:20 MCH 34.6 pg (27.0-34.0) H 10/27/22 04:20 MCHC 34.2 g/dL (33.0-35.0) 10/27/22 04:20 RDW 12.3 % (11.6-16.5) 10/27/22 04:20 Plt Count 142 X10^3/uL (150.0-450.0) L 10/27/22 04:20 Plt Count Comment Decreased (ADEQUATE) 10/26/22 04:00 MPV 8.9 fL (7.4-11.0) 10/27/22 04:20 Neut % (Auto) 59.9 % (42.0-75.0) 10/27/22 04:20 Lymph % (Auto) 28.2 % (21.0-51.0) 10/27/22 04:20 [place] % (Auto) 9.6 % (0.0-13.0) 10/27/22 04:20 Eos % (Auto) 1.7 % (0.9-2.9) 10/27/22 04:20 Baso % (Auto) 0.6 % (0.2-1.0) 10/27/22 04:20 Neut # (Auto) 4.6 x10^3/uL (2.2-4.8) 10/27/22 04:20 Lymph # (Auto) 2.2 X10^3/uL (1.3-2.9) 10/27/22 04:20 [place] # (Auto) 0.7 x10^3/uL (0.3-0.8) 10/27/22 04:20 Eos # (Auto) 0.1 x10^3/uL (0.0-0.2) 10/27/22 04:20 Baso # (Auto) 0.0 X10^3/uL (0.0-0.1) 10/27/22 04:20 Absolute Nucleated RBC 0.1 /100WBC 10/27/22 04:20 Plt Clumps, EDTA Rare 10/26/22 04:00 Plt Morphology Comment Normal (NORMAL) 10/26/22 04:00 RBC Morphology Normal (NORMAL) 10/26/22 04:00 Sodium 144 mmol/L (136-145) 10/27/22 04:20 Corrected Sodium 144 mmol/L (136-145) 10/27/22 04:20 Potassium 4.5 mmol/L (3.5-5.1) 10/27/22 04:20 Chloride 112 mmol/L (98-107) H 10/27/22 04:20 Carbon Dioxide 24.4 mmol/L (21-32) 10/27/22 04:20 BUN 10 mg/dL (7-18) 10/27/22 04:20 Creatinine 0.84 mg/dL (0.70-1.30) 10/27/22 04:20 Est GFR (MDRD) Af Amer > 60 (>60) 10/27/22 04:20 Est GFR (MDRD) Non-Af > 60 (>60) 10/27/22 04:20 Glucose 113 mg/dL (65-99) H 10/27/22 04:20 Calcium 7.6 mg/dL (8.5-10.1) L 10/27/22 04:20 Corrected Calcium 8.7 mg/dL (8.5-10.1) 10/27/22 04:20 Magnesium 2.3 mg/dL (2.0-2.9) 10/26/22 04:00 Total Bilirubin 0.40 mg/dL (0.2-1.0) 10/27/22 04:20 AST 14 Units/L (15-37) L 10/27/22 04:20 ALT 19 Units/L (12-78) 10/27/22 04:20 Alkaline Phosphatase 61 Units/L (46-116) 10/27/22 04:20 Total Protein 5.5 g/dL (6.4-8.2) L 10/27/22 04:20 Albumin 2.6 g/dL (3.4-5.0) L 10/27/22 04:20 Globulin 2.9 g/dL (2.5-4.5) 10/27/22 04:20 Albumin/Globulin Ratio 0.9 Ratio (1.1-2.1) L 10/27/22 04:20 Specimen Type Clean catch urine 10/24/22 22:56 Urine Color Pale yellow (YELLOW) 10/24/22 22:56 Urine Appearance Clear (CLEAR) 10/24/22 22:56 Urine pH 6.0 (5.0 - 8.0) 10/24/22 22:56 Ur Specific [place] 1.015 (1.000-1.030) 10/24/22 22:56 Urine Protein Negative (NEGATIVE) 10/24/22 22:56 Urine Glucose (UA) Negative (NEGATIVE) 10/24/22 22:56 Urine Ketones Negative (NEGATIVE) 10/24/22 22:56 Urine Blood Negative (NEGATIVE) 10/24/22 22:56 Urine Nitrite Negative (NEGATIVE) 10/24/22 22:56 Urine Bilirubin Negative (NEGATIVE) 10/24/22 22:56 Urine Urobilinogen Normal (NORMAL) 10/24/22 22:56 Ur Leukocyte Esterase Negative (NEGATIVE) 10/24/22 22:56 Salicylates < 2.8 mg/dL (2.8-20) L 10/24/22 22:10 Urine Opiates Screen Negative (NEG=<300) 10/24/22 23:00 Urine Methadone Screen Negative (NEG=<300) 10/24/22 23:00 Acetaminophen 0.0 ug/mL (10-30) L 10/24/22 22:10 Ur Barbiturates Screen Negative (NEG=<200) 10/24/22 23:00 Ur Phencyclidine Scrn Negative (NEG=<25) 10/24/22 23:00 Ur Amphetamines Screen Negative (NEG=<1000) 10/24/22 23:00 U Benzodiazepines Scrn Negative (NEG=<200) 10/24/22 23:00 Urine Cocaine Screen Negative (NEG=<300) 10/24/22 23:00 U Marijuana (THC) Screen Negative (NEG=<50) 10/24/22 23:00 Ethyl Alcohol mg/dL < 3 mg/dL (0-19.9) 10/24/22 16:00 Plan (1) Depression: Status: Acute Plan: Defer to mental health for treatment. (2) Suicidal ideation: Status: Acute Plan: Referred to mental health for further evaluation and treatment. (3) Polysubstance abuse: Status: Acute Plan: Mental health referral for treatment. (4) Hypertension: Status: Acute Plan: I will add chlorthalidone 25 mg 1 p.o. daily for improved blood pressure control. (5) Agitation: Status: Acute Plan: As needed Geodon IM/p.o.
[2022-10-27] MEDS ORDERED: CHLORTHALIDONE PO SCH (09:00)
[2022-10-27] MEDS ORDERED: CATAPRES TAB 0.1 MG PO ONE ×2 (10:54→14:19)
[2022-10-27] MEDS ORDERED: NORVASC TAB 10 MG PO SCH (13:00)
[2022-10-27] MEDS ORDERED: COREG TAB 25 MG PO SCH (13:00)
[2022-10-27 15:07] VITALS: BP 173/94
== END 2022-10-27 14:40 ==
LOC: ICU 15:30 → ER 15:30 → ICU 19:28
PROVIDERS: ADMIT Internal Medicine; ATTEND Family Medicine
DX: I10 Essential (primary) hypertension; F19.10 Other psychoactive substance abuse, uncomplicated; T42.4X2A Poisoning by benzodiazepines, intentional self-harm, initial encounter; F17.200 Nicotine dependence, unspecified, uncomplicated; R45.1 Restlessness and agitation; Y92.9 Unspecified place or not applicable; Z86.73 Personal history of transient ischemic attack (TIA), and cerebral infarction without residual deficits; Z78.1 Physical restraint status; F41.9 Anxiety disorder, unspecified